=== PATIENT | male | born 1975 | race Asian ===

== ENCOUNTER 2020-03-08 08:31 | Day surgery (SDC) | payer BC ==
[2020-03-05 15:04] VITALS: BMI 24.7
[2020-03-08] MEDS ORDERED: PROPOFOL 20 ML ONE (09:21)
[2020-03-08] MEDS ORDERED: LIDOCAINE HCL/PF 2% SDV 5ML VIAL ONE (09:21)
[2020-03-08 15:09] VITALS: TEMP 97.4
[2020-03-08 15:12] VITALS: BP 117/70; PULSE 66
== END 2020-03-08 10:30 | disposition home or self-care (01) ==
LOC: FASU-ENDO 08:31
PROVIDERS: ATTEND Internal Medicine Gastroenterology
PROC: 0DB68ZX Excision of Stomach, Via Natural or Artificial Opening Endoscopic, Diagnostic (ICD-10-PCS; 2020-03-08)
PROC: 0D758ZZ Dilation of Esophagus, Via Natural or Artificial Opening Endoscopic (ICD-10-PCS; 2020-03-08)
PROC: 0DB98ZX Excision of Duodenum, Via Natural or Artificial Opening Endoscopic, Diagnostic (ICD-10-PCS; principal; 2020-03-08 09:27)
DX: K29.50 Unspecified chronic gastritis without bleeding (principal); K29.80 Duodenitis without bleeding
CPT/HCPCS: 88305-TC; 88342-TC